=== PATIENT | female | born 1990 | race Hispanic/Latino ===

== ENCOUNTER 2023-11-24 23:10 | Emergency (ER) | payer SELFPAY ==
[2023-11-24 23:38] VITALS: BP 97/55; PULSE 55; RESP 14; TEMP 36.3; O2SAT 100
[2023-11-25 00:15] VITALS: BP 115/70; PULSE 61; RESP 14; O2SAT 100
--- NOTE | 2023-11-25 01:00 | ED.HA ---
HPI - Headache General Chief Complaint: Headache Stated Complaint: Headaches, neck pain Time Seen by Provider: 11/25/23 00:03 Source: patient Mode of arrival: ambulatory Limitations: no limitations History of Present Illness HPI Narrative: This is a 33-year-old female who presents to the ED with chief complaint of right-sided headache intermittent for the past 10 days. patient reports that the pain radiates from the right scalp to the right occiput and right ear at times. Reports there is a small lump above the right ear that she is concerned about. Denies sudden onset. Denies fevers, chills, neck pain, numbness, weakness. no positional change or provocation. Related Data Allergies Allergy/AdvReac Type Severity Reaction Status Date / Time No Known Allergies Allergy Verified 11/25/23 00:15 Review of Systems Review of Systems: All systems as dictated in HPI Exam Narrative: GENERAL: Well-appearing, well-nourished, and in no acute distress. HEAD: Normocephalic, atraumatic. EYES: PERRLA and EOMI. ENT: Nares clear, no rhinorrhea or epistaxis. Mucous membranes moist. Oropharynx without tonsillar hypertrophy exudate or other lesions. NECK: Supple. No adenopathy or masses. no meningeal signs CHEST: No respiratory distress. Clear to auscultation. No wheezes rales or rhonchi HEART: Regular rate and rhythm. No murmur heard. Normal peripheral pulses. ABDOMEN: Soft, nontender, nondistended, normal active bowel sounds. MSK: Normal range of motion. No edema. SKIN: Warm, dry, no rash. NEURO: Alert and oriented x4. No focal deficits. PSYCH: Normal mood and affect. Course Vital Signs Vital signs: Vital Signs Temperature 97.4 F L 11/24/23 23:38 Pulse Rate 55 L 11/24/23 23:38 Respiratory Rate 14 11/24/23 23:38 Blood Pressure 97/55 L 11/24/23 23:38 Pulse Oximetry 100 11/24/23 23:38 Oxygen Delivery Room Air 11/24/23 23:38 Temperature 97.4 F L 11/24/23 23:38 Pulse Rate 61 11/25/23 00:15 Respiratory Rate 14 11/25/23 00:15 Blood Pressure 115/70 11/25/23 00:15 Pulse Oximetry 100 11/25/23 00:15 Oxygen Delivery Room Air 11/24/23 23:38 MDM - Headache MDM Narrative Medical decision making narrative: this is a 33-year-old female who presents to the ED for chief complaint of right-sided headache times 10 days. Gradual in onset. Vitals are normal. Exam is benign. No signs of meningismus. No red flag signs or symptoms for headache today. symptoms most likely consistent with migraine headache. Patient was given migraine cocktail with good relief. Pt will be discharged in stable condition. Return precautions given and supportive measures discussed. Pt is understanding and agreeable with plan for discharge and follow-up with PCP. Differential Diagnosis Differential diagnosis: Likely migraine, tension headache, subarachnoid hemorrhage, headache, meningitis and sinusitis Discharge Plan Discharge Clinical Impression: Migraine Patient Disposition: Home, Self-Care Condition: Stable Instructions: Antibiotic Form Additional Instructions: Please take both ibuprofen 600 mg and Tylenol 500 mg whenever you feel a headache come on. Follow-up with PCP regarding headaches. If you have any new or worsening symptoms please return to the ER for further evaluation. Follow-up/Referrals: PHYSICIAN NOT ON STAFF,NONSTAFF [Primary Care Provider] - Time of Disposition: 01:52
[2023-11-25] MEDS: diphenhydrAMINE HCl INJ 50 MG/ML VIAL 25 MG IV PUSH (01:12)
[2023-11-25] MEDS: KETOROLAC 15 MG/ML VIAL (*BKC) IV PUSH (01:12)
[2023-11-25] MEDS: SODIUM CHLORIDE 0.9% IV 1,000 ML 999 ML IV CONT (01:13)
== END 2023-11-25 02:21 | disposition home or self-care (01) ==
PROVIDERS: Emergency Provider Physician Assistant
DX: G43.909 Migraine, unspecified, not intractable, without status migrainosus (principal)
CPT/HCPCS: 96361; 96374; 96375; 99284; J1200; J1885; J7030

== ENCOUNTER 2024-06-04 09:34 | Emergency (ER) | payer SELFPAY ==
[2024-06-04 09:45] VITALS: BP 99/60; PULSE 77; RESP 20; TEMP 37; O2SAT 99
--- NOTE | 2024-06-04 11:11 | ED.URI ---
HPI - URI/Sore Throat General Chief Complaint: Upper Respiratory Infection Stated Complaint: Fever, body aches, cough Time Seen by Provider: 06/04/24 09:59 Source: patient Mode of arrival: ambulatory Limitations: language barrier ([facility] language services used to translate) History of Present Illness HPI Narrative: This is a 34-year-old female, with no significant past medical history, presents emergency department complaining of fevers, chills, myalgias, cough and congestion for the past day. She states her son has had similar symptoms. She denies any recent travel or other known sick contacts. She has taken Tylenol and cough medicine Brinda manning without significant improvement. She has no other complaints at this time. Related Data Allergies Allergy/AdvReac Type Severity Reaction Status Date / Time No Known Allergies Allergy Verified 11/25/23 00:15 Review of Systems Review of Systems: All systems reviewed & are unremarkable except as noted in HPI and below PMFSH Past Medical History Medical History No significant past medical history Surgical History Surgical History No significant past surgical history Social History Social History Smoking status: Never smoker Alcohol intake: current Drinks per week: 1 Substance use: never Exam Narrative: GENERAL: Well-developed, well-nourished, and in no acute distress. HEAD: Normocephalic, atraumatic. EYES: PERRLA and EOMI. ENT: Nares clear, no rhinorrhea or epistaxis. Mucous membranes moist. Oropharynx without tonsillar hypertrophy exudate or other lesions. Bilateral TMs pearly martínez nonbulging CHEST: Clear to auscultation. No respiratory distress. No wheezes rales or rhonchi HEART: Regular rate and rhythm. No murmur heard. Normal peripheral pulses. EXTREMITIES: Normal range of motion. No edema. SKIN: Warm, dry, no rash. NEURO: Alert and oriented x3. No focal deficit. Moving all 4 limbs spontaneously PSYCH: Normal mood and affect. Course Course Emergency Course: 12:02 - The patient tested positive for influenza a and negative for influenza B, RSV and COVID. Will discharge with medications for symptomatic management with recommendations for rest and primary care follow-up. I discussed the findings and recommendations with the patient. Discussed return and emergency precautions including signs/symptoms of respiratory distress and ACS. The patient voiced understanding and agreement with the plan. All questions answered to her satisfaction. Vital Signs Vital signs: Vital Signs Temperature 98.6 F 06/04/24 09:45 Pulse Rate 77 06/04/24 09:45 Respiratory Rate 20 06/04/24 09:45 Blood Pressure 99/60 L 06/04/24 09:45 Pulse Oximetry 99 06/04/24 09:45 Oxygen Delivery Room Air 06/04/24 09:45 Temperature 98.6 F 06/04/24 09:45 Pulse Rate 77 06/04/24 09:45 Respiratory Rate 20 06/04/24 09:45 Blood Pressure 99/60 L 06/04/24 09:45 Pulse Oximetry 99 06/04/24 09:45 Oxygen Delivery Room Air 06/04/24 09:45 MDM - URI/Sore Throat MDM Narrative Medical decision making narrative: Plan include blood in stool labs, symptomatic control, reassess Differential Diagnosis Differential diagnosis: Likely upper respiratory infection, viral infection, influenza, pharyngitis and other (COVID, RSV, other) Lab Data Labs: Lab Results 06/04/24 Range/Units 10:36 Influenza A (RT-PCR) Positive A (Negative) Influenza B (RT-PCR) Negative (Negative) RSV (RT-PCR) Negative (Negative) SARS-CoV-2 RNA (RT-PCR) Negative (Negative) Discharge Plan Discharge Clinical Impression: Acute coryza, Influenza A Patient Disposition: Home, Self-Care Condition: Stable Instructions: Antibiotic Form, Influenza (ED) Additional Instructions: You were seen in the emergency department. You tested positive influenza a and negative for influenza B, RSV and COVID. I recommend rest, decongestants, cough medications and follow-up with your primary care doctor. If you develop chest pain, shortness of breath, loss of consciousness, or if you have other emergent concerns for life, limb, or eyesight, return to the emergency department. Patient Language: Guinean Prescriptions: New pseudoephedrine HCl 60 mg tablet 60 mg PO Q8H PRN (Reason: nasal congestion) Qty: 15 0RF Rx Instructions: DNExceed 4 doses/24h Mucinex DM 30-600 mg tablet extended release 12 hr 1 tablet PO Q12H PRN (Reason: cough) Qty: 20 0RF Follow-up/Referrals: PHYSICIAN NOT ON STAFF,NONSTAFF [Primary Care Provider] - 2 Weeks Time of Disposition: 12:10
[2024-06-04 11:17] LABS: Influenza A QL RT-PCR Positive (Negative); Influenza B QL RT-PCR Negative (Negative); RSV RNA, RT-PCR Negative (Negative); SARS-CoV-2 RNA PCR Negative (Negative)
[2024-06-04] MEDS: ACETAMINOPHEN 500 MG TABLET 1000 MG PO (11:31)
[2024-06-04 12:20] VITALS: BP 105/72; PULSE 90; RESP 18; TEMP 37.2; O2SAT 98
--- OUTSIDE RECORDS SUMMARY | 2024-06-08 10:10 | XMS_ITS | Referral Summary ---
Author Organization [facility] Address [address] [place] [address] Care Team Providers Care Climatologist Name Role Phone No, Physician Primary Care Provider [phone] Allergies No known active allergies Medications ondansetron ODT (ZOFRAN-ODT) 4 mg disintegrating tablet Take 1 tablet (4 mg total) by mouth every 8 (eight) hours as needed for nausea or vomiting 20 tablet Active Social History Tobacco Use Types Packs/Day Years Used Date Smoking Tobacco: Never Assessed Personal Safety Answer Date Recorded Getting School Help Needed Not on file 01/07 Comments No Sex and Gender Information Value Date Recorded Sex Assigned at Not on file Legal Sex Female 2:23 PM CDT Gender Identity Not on file Sexual Orientation Not on file Last Filed Vital Signs Vital Sign Reading Time Taken Comments Blood Pressure 92/50 11/27/2022 5:05 PM CDT Pulse 57 11/27/2022 5:05 PM CDT Temperature 37 ??C (98.6 ??F) 11/27/2022 3:08 PM CDT Respiratory Rate 18 11/27/2022 5:05 PM CDT Oxygen Saturation 100% 11/27/2022 5:05 PM CDT Inhaled Oxygen Concentration - - Weight 55.5 kg (122 lb 5.7 oz) 11/27/2022 3:08 P M CDT Height 152.4 cm (5') 11/27/2022 3:08 PM CDT Body Mass Index 23.9 11/27/2022 3:08 PM CDT Plan of Treatment Not on file Care Teams Climatologist Relationship Specialty Start Date End Date No, Physician PCP - General 09/06/22
--- OUTSIDE RECORDS SUMMARY | 2024-06-08 10:10 | XMS_ITS | Clinical Summary ---
Author Organization [facility] Address [address] [place] [address] Care Team Providers Care Filling Machine Set Up Mechanic Name Role Phone No, Physician Primary Care Provider [phone] Allergies No known active allergies Medications ondansetron [...] 11/27/2022 3:08 PM CDT Plan of Treatment Health Maintenance Due Date Last Done Comments Cervical Cancer Screening 1990 Depression Screening 1990 Hepatitis C Screening 1990 DTaP/Tdap/Td Vaccine (1 - Tdap) 2001 Varicella Vaccines (1 of 2 - 13+ 2-dose series) 2003 Hepatitis B Screening 2008 Regular Well Visit/Exam 18-64 2008 Influenza Vaccine (#1) 2024 HPV Vaccines Aged Out No longer eligi ble based on patient's age to complete this topic Pneumococcal vaccine <65 Aged Out No longer eligible based on patient's age to complete this topic Care Teams Filling Machine Set Up Mechanic Relationship Specialty Start Date End Date No, Physician PCP - General 09/06/22
== END 2024-06-04 12:27 | disposition home or self-care (01) ==
PROVIDERS: Emergency Provider Preventive Medicine Aerospace Medicine
DX: J10.1 Influenza due to other identified influenza virus with other respiratory manifestations (principal); Z20.822 Contact with and (suspected) exposure to COVID-19
CPT/HCPCS: 87637; 99283; A9270

== ENCOUNTER 2025-04-21 11:18 | Emergency (ER) | payer SELFPAY ==
--- NOTE | ~2025-04-21 | XR_ITS ---
Examination: XR chest 2V Clinical History: cp Comparison: None Technique: PA and Lateral Findings: Cardiomediastinal silhouette normal size and configuration. Lungs clear. No acute bony abnormality. IMPRESSION: 1. No acute cardiopulmonary findings. Reviewed, dictated and finalized at location R. ION MECHANIC APPRENTICE
[2025-04-21 11:21] VITALS: BP 121/54; PULSE 67; RESP 16; TEMP 36.6; O2SAT 100
--- NOTE | 2025-04-21 11:21 | ECG_ITS ---
Test Date: 2025-04-21 11:28:38 Measurements Intervals [place] Rate: 59 P: -12 TX: 120 QRS: 7 QRSD: 101 T: -7 QT: 417 QTc: 414 Interpretive Statements SINUS OR ECTOPIC ATRIAL BRADYCARDIA VOLTAGE CRITERIA FOR LVH MINIMAL Q WAVES- HIGH LATERAL LEADS BORDERLINE T WAVE ABNORMALITY- INFERIOR LEADS BORDERLINE ECG No previous ECG available for comparison Electronically Signed On 04-21-2025 16:02:12 BULK DELIVERY DRIVER by Yasmani Alejandro D.O.
--- OUTSIDE RECORDS SUMMARY | 2025-04-21 11:22 | XMS_ITS | Clinical Summary ---
Author Organization [facility] Address [address] [place] [address] Care Team Providers Care Commercial Lines Account Assistant Name Role Phone No, Physician Primary Care Provider [phone] Allergies No known active allergies Medications ondansetron [...] 57 11/27/2022 5:05 PM CDT Temperature 37 C (98.6 F) 11/27/2022 3:08 PM CDT Respiratory Rate 18 [...] Screening 2008 Regular Well Visit/Exam 18-64 2008 HPV Vaccines (1 - 3-dose SCD M series) 2017 Influenza Vaccine (#1) 2025 Pneumococcal vaccine <65 Aged Out No longer eligible based on patient's age to complete this topic Care Teams Commercial Lines Account Assistant Relationship Specialty Start Date End Date No, Physician PCP - General 09/06/22
[2025-04-21 11:40] LABS: Hematocrit 33.1 % (37.0-47.0); Hemoglobin 9.9 g/dL (12.0-15.0); Immature Granulocyte Percent A 0.7 % (0-0.5); Lymphocytes Absolute Auto 2.60 K/mm3 (0.9-3.2); Mean Corpuscular HGB Conc 29.9 g/dl (32-36); Mean Corpuscular Hemoglobin 22.2 pg (26-34); Mean Corpuscular Volume 74.2 fl (80-100); Nucleated Red Blood Cells Absolute Auto 0.000 K/mm3 (0.0-0.012); Nucleated Red Blood Cells Perc 0.0 % (0.0-0.2); Platelet Count Result 403 k/mm3 (150-375); Red Blood Count 4.46 M/mm3 (4.2-5.4); White Blood Count 8.8 K/mm3 (4.5-10.0)
[2025-04-21 11:51] LABS: Alanine Aminotransferase 40 U/L (6-35); Albumin Level 4.4 g/dL (3.5-5.1); Alkaline Phosphatase 82 U/L (38-126); Anion Gap 9 mmol/L (4-12); Aspartate Amino Transferase 38 U/L (14-36); Bilirubin,Total 0.7 mg/dL (0.2-1.3); Blood Urea Nitrogen 11 mg/dL (7-17); Calcium 9.6 mg/dL (8.4-10.2); Carbon Dioxide 23 mmol/L (22-30); Chloride 106 mmol/L (98-107); Estimated CRCL calculation 87 ml/min; Estimated Glomerular Filt Rate > 60; Glucose 96 mg/dL (65-110); Lipase 86 U/L (23-300); Potassium 4.0 mmol/L (3.4-5.0); Sodium 138 mmol/L (137-145); Total Protein 8.5 g/dL (6.3-8.2)
[2025-04-21 11:58] LABS: INR 1.0; Prothrombin Time 13.1 Seconds (11.1-14.7)
[2025-04-21 11:59] LABS: Partial Thromboplastin Time 25.4 Seconds (22.3-36.8)
[2025-04-21 12:00] LABS: Anisocytosis 1+; Hypochromasia 1+; Schistocytes None Seen
[2025-04-21 12:01] LABS: Troponin I < 0.012 ng/mL (0.000-0.034)
[2025-04-21 12:02] LABS: Ovalocytes 1+; Polychromasia Occasional
--- OUTSIDE RECORDS SUMMARY | 2025-04-21 13:03 | XMS_ITS | Clinical Summary ---
Author Organization [facility] Address [address] [place] [address] Care Team Providers Care Campus Executive Director Name Role Phone No, Physician Primary Care Provider [phone] Allergies No known active allergies Medications ondansetron [...] age to complete this topic Care Teams Campus Executive Director Relationship Specialty Start Date End Date No, Physician PCP - General 09/06/22
--- NOTE | 2025-04-21 14:24 | ECG_ITS ---
Test Date: 2025-04-21 14:33:16 Measurements Intervals [place] Rate: 66 P: 23 NC: 120 QRS: 12 QRSD: 96 T: 1 QT: 429 QTc: 450 Interpretive Statements SINUS RHYTHM WITH SINUS ARRHYTHMIA VOLTAGE CRITERIA FOR LVH MINIMAL Q WAVES- HIGH LATERAL LEADS BORDERLINE ST-T WAVE ABNORMALITY- INFERIOR LEADS BASELINE ARTIFACT- I, III, AVR, AVL ,AVF, V2 BORDERLINE ECG Compared to ECG 04/21/2025 11:28:38 NO SIGNIFICANT CHANGE Electronically Signed On 04-21-2025 16:05:43 DREDGE PIPE OPERATOR by Yasmani Alejandro D.O.
[2025-04-21 15:05] LABS: Troponin I < 0.012 ng/mL (0.000-0.034)
--- NOTE | 2025-04-21 15:55 | ED_ITS ---
HPI - General Adult General Chief complaint: Chest Pain Stated complaint: chest pain, L arm/neck/back pain Time Seen by Provider: 04/21/25 12:51 History of Present Illness HPI narrative: 35-year-old female presents emergency department for evaluation for left-sided chest pain that does radiate into her left arm and back. Patient states that the pain has been ongoing for the last week. Patient also does report associated headache. patient states the pain is worsened with movement and is worsened with movement of her head specifically. Patient denies any associated shortness of breath. Patient denies any prior cardiac history. Patient denies any prior history of PE or DVT. Translation services were utilized for the patient interview Related Data Allergies Allergy/AdvReac Type Severity Reaction Status Date / Time No Known Allergies Allergy Verified 11/25/23 00:15 Review of Systems 2 Review of Systems: All systems reviewed & are unremarkable except as noted in HPI and below PMFSH Past Medical History Medical History No significant past medical history Surgical History Surgical History No significant past surgical history Social History Social History Smoking status: Never smoker Alcohol intake: current Drinks per week: 1 Substance use: never Exam 2 Narrative: APPEARANCE: Well appearing, no pain, no distress, well-nourished. HEAD: normocephalic, atraumatic. EYES: PERRLA/EOMI, conjunctivae clear. NOSE: Normal no drainage EARS:TMS clear with good light reflex. THROAT: Pharynx clear, no exudate. NECK: Supple. No adenopathy, no masses. RESPIRATORY: Airway patent, respirations nonlabored. Clear to auscultation bilaterally, no rales, rhonchi, wheezing. CARDIOVASCULAR: Regular rate and rhythm without murmurs rubs or gallops. ABDOMINAL: Soft, nontender, nondistended, normal bowel sounds MUSCULOSKELETAL: left-sided trapezius tenderness to palpation NEURO: Alert. Cranial nerves II through XII intact. Good gait. Good coordination SKIN: Warm, dry. Normal Color Course Vital Signs Vital signs: Vital Signs Temperature 97.8 F 04/21/25 11:21 Pulse Rate 67 04/21/25 11:21 Respiratory Rate 16 04/21/25 11:21 Blood Pressure 121/54 L 04/21/25 11:21 Pulse Oximetry 100 04/21/25 11:21 Oxygen Delivery Room Air 04/21/25 11:21 Temperature 97.8 F 04/21/25 11:21 Pulse Rate 67 04/21/25 11:21 Respiratory Rate 16 04/21/25 11:21 Blood Pressure 121/54 L 04/21/25 11:21 Pulse Oximetry 100 04/21/25 11:21 Oxygen Delivery Room Air 04/21/25 11:21 MDM MDM Narrative Medical decision making narrative: 35-year-old female presents emergency department for evaluation for left-sided chest pain. Patient is currently afebrile with no leukocytosis and a stable hemoglobin of 9.9. INR of 1.0 to D-dimer of less than 0.27. Patient had negative serial troponins. Lipase was not elevated. Chest x-ray shows no acute cardiopulmonary abnormality. Low concern for ACS, low concern for pneumothorax and pulmonary embolism. Patient does have reproducible left trapezius tightness to palpation is worsened with movement. Patient denies any worsening of the pain with deep inspiration. Patient was treated with Toradol emergency department along with a muscle relaxant. Patient was updated the results of her workup and patient was comfortable the plan for discharge close follow-up Differential Diagnosis Differential Diagnosis: pulmonary embolism, ACS, pneumonia, pneumothorax, muscular strain Lab Data 04/21/25 11:34 04/21/25 11:34 Labs: Lab Results 04/21/25 04/21/25 Range/Units 11:34 14:37 WBC 8.8 (4.5-10.0) K/mm3 RBC 4.46 (4.2-5.4) M/mm3 Hgb 9.9 L (12.0-15.0) g/dL Hct 33.1 L (37.0-47.0) % MCV 74.2 L (80-100) fl MCH 22.2 L (26-34) pg MCHC 29.9 L (32-36) g/dl RDW 18.6 H (11.5-14.5) % Plt Count 403 H (150-375) k/mm3 MPV 9.3 (7.4-10.4) fl Immature Gran % (Auto) 0.7 H (0-0.5) % Neut % (Auto) 57.6 (45.5-73.1) % Lymph % (Auto) 29.7 (18.3-44.2) % [place] % (Auto) 6.8 (2.6-8.5) % Eos % (Auto) 4.2 (0-4.4) % Baso % (Auto) 1.0 (0.2-1.2) % Lymph # (Auto) 2.60 (0.9-3.2) K/mm3 [place] # (Auto) 0.6 (0.1-0.6) K/mm3 Eos # (Auto) 0.4 H (0-0.3) K/mm3 Baso # (Auto) 0.1 (0.0-0.1) K/mm3 Abs Immat Gran (auto) 0.06 H (0.00-0.031) K/mm3 Absolute Neuts (auto) 5.0 (1.3-6.7) K/mm3 Absolute Nucleated RBC 0.000 (0.0-0.012) K/mm3 Band Neutrophils % Not Reportable Nucleated RBC % 0.0 (0.0-0.2) % Platelet Estimate Slightly increased (Adequate) Polychromasia Occasional Hypochromasia 1+ Anisocytosis 1+ Ovalocytes 1+ Schistocytes None seen PT 13.1 (11.1-14.7) Seconds INR 1.0 APTT 25.4 (22.3-36.8) Seconds D-Dimer < 0.27 (<0.48) ug/mL Sodium 138 (137-145) mmol/L Potassium 4.0 (3.4-5.0) mmol/L Chloride 106 (98-107) mmol/L Carbon Dioxide 23 (22-30) mmol/L Anion Gap 9 (4-12) mmol/L BUN 11 (7-17) mg/dL Creatinine 0.61 L (0.7-1.0) mg/dL Estim Creat Clear Calc 87 ml/min Estimated GFR > 60 (59 - ) Glucose 96 (65-110) mg/dL Calcium 9.6 (8.4-10.2) mg/dL Total Bilirubin 0.7 (0.2-1.3) mg/dL AST 38 H (14-36) U/L ALT 40 H (6-35) U/L Alkaline Phosphatase 82 (38-126) U/L Troponin I < 0.012 < 0.012 (0.000-0.034) ng/mL Total Protein 8.5 H (6.3-8.2) g/dL Albumin 4.4 (3.5-5.1) g/dL Lipase 86 (23-300) U/L Imaging Data Radiologist's impression: ITS Impressions Chest X-Ray 04/21/25 12:23 IMPRESSION: 1. No acute cardiopulmonary findings. Discharge Plan Discharge Clinical Impression: Strain of left trapezius muscle Patient Disposition: Home Condition: Stable Instructions: Antibiotic Form Additional Instructions: Scheduled ibuprofen for the next few days. Cyclobenzaprine as needed for muscle spasm. Have close follow-up with your primary care physician. If you have any worsening symptoms then please call or return to the emergency department. Patient Language: Maldivian Prescriptions: New cyclobenzaprine 10 mg tablet 10 mg PO BID PRN (Reason: muscle spasm) Qty: 14 0RF No Action pseudoephedrine HCl 60 mg tablet 60 mg PO Q8H PRN (Reason: nasal congestion) Qty: 15 0RF Rx Instructions: DNExceed 4 doses/24h Mucinex DM 30-600 mg tablet extended release 12 hr 1 tablet PO Q12H PRN (Reason: cough) Qty: 20 0RF Follow-up/Referrals: PHYSICIAN,PACKAGE DYEING MACHINE OPERATOR [Primary Care Provider, Internal Medicine]
[2025-04-21] MEDS: CYCLOBENZAPRINE HCL 10 MG TABLET PO (16:18)
[2025-04-21] MEDS: KETOROLAC 30 MG/ML VIAL (*BKC) IV PUSH (16:18)
== END 2025-04-21 16:24 | disposition home or self-care (01) ==
PROVIDERS: Emergency Provider Emergency Medicine
DX: S46.812A Strain of other muscles, fascia and tendons at shoulder and upper arm level, left arm, initial encounter (principal); R94.31 Abnormal electrocardiogram [ECG] [EKG]; X58.XXXA Exposure to other specified factors, initial encounter
CPT/HCPCS: 36415; 71046; 80053; 83690; 84484; 85025; 85380; 85610; 85730; 93005; 96374; 99284; A9270; J1885